=== PATIENT | female | born 1995 | race Caucasian/White ===

== ENCOUNTER 2021-05-11 14:05 | Emergency (ER) | payer OTHER ==
[2021-05-11] MEDS ORDERED: traMADol 50 MG Tab PO ONE (14:39)
== END 2021-05-11 16:45 | disposition home or self-care (01) ==
LOC: LL.ED 14:05
DX: S82.51XA Displaced fracture of medial malleolus of right tibia, initial encounter for closed fracture (principal); S82.831A Other fracture of upper and lower end of right fibula, initial encounter for closed fracture; E66.9 Obesity, unspecified; Z68.36 Body mass index [BMI] 36.0-36.9, adult; W00.9XXA Unspecified fall due to ice and snow, initial encounter
CPT/HCPCS: 29515; 73590; 99282; 99283; A9270

== ENCOUNTER 2023-04-13 13:34 | Emergency (ER) | payer MEDICAID ==
[2023-04-13 14:24] LABS: BASOPHILS ABSOLUTE AUTO 0.03 K/uL (0.00-0.20); BASOPHILS PERCENT AUTO 0.3 % (0.0-2.0); EOSINOPHILS ABSOLUTE AUTO 0.05 K/uL (0.00-0.50); EOSINOPHILS PERCENT AUTO 0.5 % (0.0-5.0); HEMATOCRIT 37.5 % (34.0-46.0); LYMPHOCYTES ABSOLUTE AUTO 2.82 K/uL (0.50-3.50); LYMPHOCYTES PERCENT AUTO 26.2 % (10.0-50.0); MEAN CORPUSCULAR VOLUME 78.1 fL (84.0-98.0); MONOCYTES ABSOLUTE AUTO 0.67 K/uL (0.00-1.00); MONOCYTES PERCENT AUTO 6.2 % (2.0-14.0); NEUTROPHILS ABSOLUTE AUTO 7.19 K/uL (1.40-7.00); NEUTROPHILS PERCENT AUTO 66.8 % (45.0-80.0); PLATELET COUNT,PLT 315 K/uL (150-350); RED CELL DISTRIBUTION WIDTH 15.3 % (11.2-14.1); WHITE BLOOD CELL COUNT,WBC 10.8 K/uL (4.0-10.2)
[2023-04-13 14:37] LABS: ALANINE AMINOTRANSFERASE,ALT 27 U/L (12-78); ALBUMIN 3.7 g/dL (3.4-5.0); ALKALINE PHOSPHATASE 86 IU/L (46-116); ANION GAP 10.6 meq/L (7-15); ASPARTATE AMNIOTRANSFERASE,AST 16 U/L (15-37); BILIRUBIN TOTAL 0.3 mg/dL (0.2-1.0); BLOOD UREA NITROGEN,BUN 11 mg/dL (7-18); CALCIUM 9.1 mg/dL (8.5-10.1); CARBON DIOXIDE,CO2 27.4 mmol/L (21.0-32.0); CHLORIDE,CL 103 mmol/L (98-107); CREATININE 0.78 mg/dL (0.51-1.17); GLUCOSE RANDOM 93 mg/dL (70-99); POTASSIUM,K 3.5 mmol/L (3.5-5.1); PROTEIN TOTAL,TP 7.4 g/dL (6.4-8.2); SODIUM,NA 141 mmol/L (136-145)
[2023-04-13 14:38] LABS: ESTIMATED GFR 108 mL/min (>=60)
== END 2023-04-13 16:00 | disposition home or self-care (01) ==
LOC: LL.ED 13:34
DX: R04.0 Epistaxis (principal); Z88.6 Allergy status to analgesic agent
CPT/HCPCS: 36415; 80053; 85025; 99283